=== PATIENT | male | born 1945 | race Caucasian/White ===

== ENCOUNTER 2016-08-05 13:04 | Emergency (ER) | payer OTHER ==
[2016-08-05 13:11] VITALS: PULSE 75
--- NOTE | 2016-08-05 15:12 | EDPHY ---
H & P Chief Complaint Nursing Narrative: pt reports reaching for a bowl and strained back x2 days ago, pain continues and increases with movement Time Seen by Provider: 08/05/16 14:46 HPI/ROS: Chief Complaint: Back pain HPI: Patient was lifting for bowl 2 days ago when he had onset of back pain right greater than left. Did have a fall 10 days ago but has not have any pain until 2 days ago. Has been taking some Tylenol and took oxycodone with minimal relief. No numbness or weakness. No falls other than the fall 2 weeks ago. No lightheadedness or fainting. No nausea vomiting or diarrhea. No changes to his bowel or bladder habits. No fevers. Patient states he has a history of chronic hypotension. Was recently had his medications changed when his eligibility counselor found his blood pressure was in the 60s systolic. Is normal for hand or run low he states. ROS: 10 point Review of Systems is negative except as noted in the HPI. PMH: Coronary artery disease, chronically hypotensive Social History: No smoking, no alcohol, no recreational drug use Family History: non-contributory Physical Exam: Gen: Awake, Alert, No Distress HEENT: Nose: no rhinorrhea Eyes: PERRLA, EOMI Mouth: Moist mucosa Neck: Supple, no JVD Chest: nontender, lungs clear to auscultation Heart: S1, S2 normal, no murmur Abd: Soft, non-tender, no guarding Back: no CVA tenderness, no midline tenderness his moderate right-sided paraspinal tenderness with mild midline tenderness. No step-offs or crepitus. Ext: no edema, non-tender Skin: no rash Neuro: CN II-XII intact, Sensation grossly intact, Strength [5]/5 in [bilateral ] [upper and] [lower] extremities - Personal History Current Tetanus/Diphtheria Vaccine: Yes Current Tetanus Diphtheria and Acellular Pertussis (TDAP): Yes Tetanus Vaccine Date: < 5 YEARS - Medical/Surgical History Hx Asthma: No Hx Chronic Respiratory Disease: Yes Hx Diabetes: No Hx Cardiac Disease: Yes Hx Renal Disease: No Hx Cirrhosis: No Hx Alcoholism: No Hx HIV/AIDS: No Hx Splenectomy or Spleen Trauma: No Other PMH: cardiac stents (4) with Dr. Jacobsen, HE,PM 3 LDS, Unstable angina , mi AT 43 Y/O QUADRUPLE bypass 1989, CHF, right shoulder surgery, rigth side psEudoanyrsym from previous angio was repaired. CPAP-NEENA - Social History Smoking Status: Never smoked Constitutional: Initial Vital Signs Temperature (C) 36.6 C 08/05/16 13:08 Heart Rate 75 08/05/16 13:08 Respiratory Rate 16 08/05/16 13:08 Blood Pressure 83/50 L 08/05/16 13:08 O2 Sat (%) 97 08/05/16 13:08 O2 Delivery Mode Room Air Allergies/Adverse Reactions: Sulfa (Sulfonamide Antibiotics) Allergy (Verified 06/18/14 10:59) Rash Home Medications: Medication Instructions Recorded Aspirin [Aspirin 325 mg (*)] 325 mg PO HS 06/18/14 Carvedilol [Coreg (*)] 25 mg PO BIDMEAL 06/18/14 Eplerenone [Inspra 25 MG (*)] 25 mg PO DAILY 06/18/14 Multivitamin [Multi-Vitamin Daily] 1 each PO DAILY 06/18/14 Niacin ER [Niaspan 500 mg (*)] 500 mg PO HS 06/18/14 Nitroglycerin [Nitrolingual] 0.4 gm TL ONCE PRN 06/18/14 Ranolazine [Ranexa] 500 mg PO BID 06/18/14 Tamsulosin HCl [Flomax 0.4 MG (*)] 0.4 mg PO DAILY 06/18/14 Allopurinol [Allopurinol 300 MG 300 mg PO DAILY 06/12/15 (RX)] Digoxin [Lanoxin 0.125 mg] 0.125 mg PO HS 06/12/15 Furosemide [Lasix 40 MG (*)] 40 mg PO BID #60 tab 06/14/15 Amiodarone HCl [Pacerone (*)] 200 mg PO BID 01/01/16 Dabigatran Etexilate Mesyl 150 mg PO BID 01/01/16 [Pradaxa 150 MG (*)] Losartan Potassium [Cozaar 25 mg 25 mg PO DAILY 01/01/16 (*)] Potassium Chloride [K-Tab ER] 20 meq PO BID 01/01/16 Simvastatin [Zocor] 40 mg PO HS 01/01/16 Acetaminophen [Tylenol ES 500 mg 500 mg PO Q6HRS PRN #0 tab 09/15/16 (*)] Sennosides/Docusate Sodium 1 tab PO ONCE #0 tab 01/02/16 [Senokot-S] oxyCODONE IR [Oxycodone Ir (*)] 5 mg PO Q4HRS PRN #0 tab 01/02/16 Medical Decision Making - Diagnostics Imaging Results: Imaging Impressions Lumbar Spine X-Ray 08/05/16 15:07 Impression: 1. No compression fracture or bone lesion. 2. Multilevel degenerative disk and facet arthropathy are unchanged since 2016. Procedures: Procedure: Limited abdominal ultrasound. A limited abdominal ultrasound was performed of the retroperitoneum. The indication for the study was to rule out abdominal aortic aneurysm. On the study no evidence of AAA was identified. The approximate cross sectional measurement of the aorta was 1.3 cm, 1.38 cm, 1.25 cm. Results: No evidence of aortic aneurysm. The examination was performed and interpreted by myself. Departure - Departure Disposition: Home, Routine, Self-Care Clinical Impression: Back pain Condition: Good Instructions: Low Back Strain (ED), Lower Back Exercises (ED) Additional Instructions: He may take [place] 1 tablet every 6 hours as needed for your lumbar pain. Do not take acetaminophen if you're taking the [place]. Follow up with primary care doctor next 2-3 days for re-evaluation. Return to the emergency depart for lightheadedness, fainting, numbness, tingling , difficulty with urination, or any other concerns. Referrals: Yosef Henry MD [Primary Care Provider] - As per Instructions
[2016-08-05 15:44] VITALS: RESP 18
[2016-08-05] MEDS ORDERED: HYDROCOD/APAP 5/325 PREPACK#6 BTL TAKEHOME ONE (16:06)
[2016-08-05 16:54] VITALS: BP 86/50; TEMP 98.1; O2SAT 97
--- NOTE | 2016-08-05 22:43 | UCPHY ---
H & P Patient Type: Established Chief Complaint Nursing Narrative: pt reports reaching for a bowl and strained back x2 days ago, pain continues and increases with movement Time Seen by Provider: 08/05/16 14:46 HPI/ROS: Chief Complaint: Back pain HPI: Patient was lifting for bowl 2 days ago when he had onset of back pain right greater than left. Did have a fall 10 days ago but has not have any pain until 2 days ago. Has been taking some Tylenol and took oxycodone with minimal relief. No numbness or weakness. No falls other than the fall 2 weeks ago. No lightheadedness or fainting. No nausea vomiting or diarrhea. No changes to his bowel or bladder habits. No fevers. Patient states he has a history of chronic hypotension. Was recently had his medications changed when his tightener found his blood pressure was in the 60s systolic. Is normal for hand or run low he states. ROS: 10 point Review of Systems is negative except as noted in the HPI. PMH: Coronary artery disease, chronically hypotensive Social History: No smoking, no alcohol, no recreational drug use Family History: non-contributory Physical Exam: Gen: Awake, Alert, No Distress HEENT: Nose: no rhinorrhea Eyes: PERRLA, EOMI Mouth: Moist mucosa Neck: Supple, no JVD Chest: nontender, lungs clear to auscultation Heart: S1, S2 normal, no murmur Abd: Soft, non-tender, no guarding Back: no CVA tenderness, no midline tenderness his moderate right-sided paraspinal tenderness with mild midline tenderness. No step-offs or crepitus. Ext: no edema, non-tender Skin: no rash Neuro: CN II-XII intact, Sensation grossly intact, Strength [5]/5 in [bilateral ] [upper and] [lower] extremities - Personal History Current Tetanus/Diphtheria Vaccine: Yes Current Tetanus Diphtheria and Acellular Pertussis (TDAP): Yes Tetanus Vaccine Date: < 5 YEARS - Medical/Surgical History Hx Asthma: No Hx Chronic Respiratory Disease: Yes Hx Diabetes: No Hx Cardiac Disease: Yes Hx Renal Disease: No Hx Cirrhosis: No Hx Alcoholism: No Hx HIV/AIDS: No Hx Splenectomy or Spleen Trauma: No Other PMH: cardiac stents (4) with HE [place],PM 3 LDS, Unstable angina , mi AT 43 Y/O QUADRUPLE bypass 1989, CHF, right shoulder surgery, rigth side psEudoanyrsym from previous angio was repaired. CPAP-NEENA - Family History Significant Family History: No pertinent family hx - Social History Smoking Status: Never smoked Constitutional: Initial Vital Signs Temperature (C) 36.6 C 08/05/16 13:08 Heart Rate 75 08/05/16 13:08 Respiratory Rate 16 08/05/16 13:08 Blood Pressure 83/50 L 08/05/16 13:08 O2 Sat (%) 97 08/05/16 13:08 O2 Delivery Mode Room Air Allergies/Adverse Reactions: Sulfa (Sulfonamide Antibiotics) Allergy (Verified 06/18/14 10:59) Rash Home Medications: Medication Instructions Recorded Aspirin [Aspirin 325 mg (*)] 325 mg PO HS 06/18/14 Carvedilol [Coreg (*)] 25 mg PO BIDMEAL 06/18/14 Eplerenone [Inspra 25 MG (*)] 25 mg PO DAILY 06/18/14 Multivitamin [Multi-Vitamin Daily] 1 each PO DAILY 06/18/14 Niacin ER [Niaspan 500 mg (*)] 500 mg PO HS 06/18/14 Nitroglycerin [Nitrolingual] 0.4 gm TL ONCE PRN 06/18/14 Ranolazine [Ranexa] 500 mg PO BID 06/18/14 Tamsulosin HCl [Flomax 0.4 MG (*)] 0.4 mg PO DAILY 06/18/14 Allopurinol [Allopurinol 300 MG 300 mg PO DAILY 06/12/15 (RX)] Digoxin [Lanoxin 0.125 mg] 0.125 mg PO HS 06/12/15 Furosemide [Lasix 40 MG (*)] 40 mg PO BID #60 tab 06/14/15 Amiodarone HCl [Pacerone (*)] 200 mg PO BID 01/01/16 Dabigatran Etexilate Mesyl 150 mg PO BID 01/01/16 [Pradaxa 150 MG (*)] Losartan Potassium [Cozaar 25 mg 25 mg PO DAILY 01/01/16 (*)] Potassium Chloride [K-Tab ER] 20 meq PO BID 01/01/16 Simvastatin [Zocor] 40 mg PO HS 01/01/16 Acetaminophen [Tylenol ES 500 mg 500 mg PO Q6HRS PRN #0 tab 01/02/16 (*)] Sennosides/Docusate Sodium 1 tab PO ONCE #0 tab 01/02/16 [Senokot-S] oxyCODONE IR [Oxycodone Ir (*)] 5 mg PO Q4HRS PRN #0 tab 01/02/16 Medical Decision Making - Diagnostics Imaging Results: Imaging Impressions Lumbar Spine X-Ray 08/05/16 15:07 Impression: 1. No compression fracture or bone lesion. 2. Multilevel degenerative disk and facet arthropathy are unchanged since 2016. Imaging: I viewed and interpreted images myself Procedures: Procedure: Limited abdominal ultrasound. A limited abdominal ultrasound was performed of the retroperitoneum. The indication for the study was to rule out abdominal aortic aneurysm. On the study no evidence of AAA was identified. The approximate cross sectional measurement of the aorta was 1.3 cm, 1.38 cm, 1.25 cm. Results: No evidence of aortic aneurysm. The examination was performed and interpreted by myself. Differential Diagnosis: 71-year-old male with a known history of coronary artery disease within the very low ejection fraction who is presenting with back pain after reaching for something the shelf 2 days ago. He has no new neurologic symptoms. Is very concerning his blood pressure was in the 80 systolic on presentation. Patient states that this is normal for him. He was actually seen by his heart doctor at [facility] last week and noted to have a blood pressure in the 60s systolic in a decrease his blood pressure medicines at that time. Patient states that he checks his blood pressure at least 5 times today and is always an 80 systolic. He is actually on anticipating the need for a assist device in the future. He has not had any syncope. He has had no palpitations. He has had no chest pain or shortness of breath. Bedside ultrasound here shows a normal aorta. He has not have any abdominal pain. Has no neurologic findings. No red flags for acute cauda equina syndrome. He does not want any further evaluation further medications. I have cautioned him regarding the risks of taking pain medicine and with having his blood pressure is low at it stays in he is aware. He does not want any further treatment at this time. He will discharge with follow-up with his tightener for further monitoring his blood pressure and will follow with primary care physician. - Data Points Medications Given: Discontinued Medications Hydrocodone Bitart/Acetaminophen ([place] 5/325mg Prepack#6) 1 btl TAKESANTIAGO EDNOW ONE Stop: 08/05/16 16:07 Last Admin: 08/05/16 16:15 Dose: 1 btl Departure - Departure Disposition: Home, Routine, Self-Care Clinical Impression: Back pain Condition: Good Instructions: Low Back Strain (ED), Lower Back Exercises (ED) Additional Instructions: He may take [place] 1 tablet every 6 hours as needed for your lumbar pain. Do not take acetaminophen if you're taking the [place]. Follow up with primary care doctor next 2-3 days for re-evaluation. Return to the emergency depart for lightheadedness, fainting, numbness, tingling , difficulty with urination, or any other concerns. Referrals: Yosef Henry MD [Primary Care Provider] - As per Instructions - PQRS PQRS Measurement: 134: Depression screening and followup, PRIME MD-PHQ2 (12 years and older) Over the last 2 weeks, how often have you been bothered by any of the following problems? 1. Feeling down, depressed, or hopeless? 2. Little interest or pleasure in doing things? Patient answered no to both 1 and 2 130: Documentation of medications. Reviewed all patient medications, doses, route and frequency. 226: Do you smoke? No. 47: 65 and older: Advanced care planning. Patient has advanced directive. 51: 18 years old and older with diagnosis of COPD, spirometry performance. Patient has no history of COPD 52: 18 years old and older with COPD and symptoms of COPD or FEV1<60% predicted prescribed a B Agonist. Spirometry not performed; equipment not available.
== END 2016-08-05 16:30 | disposition home or self-care (01) ==
LOC: CED 13:04
DX: M54.5 Low back pain (principal); X50.0XXA Overexertion from strenuous movement or load, initial encounter; I95.9 Hypotension, unspecified
CPT/HCPCS: 72100; G0463; 99214-PO